=== PATIENT | male | born 1935 | race Caucasian/White ===

== ENCOUNTER 2016-09-29 13:43 | Outpatient (CLI) | END 2016-09-29 13:44 | disposition home or self-care (01) | CPT/HCPCS: 70491; Q9967 ==

== ENCOUNTER 2019-05-17 09:27 | Outpatient (CLI) | payer MEDICARE, OTHER ==
[2019-05-17] MEDS ORDERED: ALBUTEROL NEB 2.5 MG/3 ML INH SCH (09:58)
== END 2019-05-17 09:28 | disposition home or self-care (01) ==
LOC: RT 09:27
PROVIDERS: ATTEND Internal Medicine Cardiovascular Disease
DX: I25.10 Atherosclerotic heart disease of native coronary artery without angina pectoris (principal); R06.00 Dyspnea, unspecified; Z87.891 Personal history of nicotine dependence
CPT/HCPCS: 94060; 94729

== ENCOUNTER 2020-06-17 14:48 | Outpatient (CLI) | payer MEDICARE, OTHER | END 2020-06-17 14:49 | disposition home or self-care (01) | LOC: COV 14:48 | PROVIDERS: ATTEND Ophthalmology | DX: Z01.818 Encounter for other preprocedural examination (principal); H25.11 Age-related nuclear cataract, right eye; Z20.828 Contact with and (suspected) exposure to other viral communicable diseases ==

== ENCOUNTER 2020-06-20 07:29 | Day surgery (SDC) | payer MEDICARE, OTHER ==
[~2020-06-20 07:29] MED LIST: CYCLOPENTOLATE 1% OPHTH DROPS 2 ML ONE; KETOROLAC 0.45% OPHTH DROPS ONE; PHENYLEPHRINE 2.5% OPHTH 2 ML DROPS ONE; PROPARACAINE 0.5% OPHTH DROPS 15 ML ONE
[2020-06-20] MEDS ORDERED: LACTATED RINGERS 500 ML IV ONE ×2 (07:34→09:29)
--- NOTE | 2020-06-20 08:21 | ANESTHESIA ---
Pre-Anesthesia VS, & Labs - Diagnosis senile combined cataract, right - Procedure right cataract extraction with IOL Vital Signs: Temp Pulse Resp BP Pulse Ox 36.5 C 63 12 137/66 H 100 06/20/20 07:35 06/20/20 07:35 06/20/20 07:35 06/20/20 07:35 06/20/20 07:35 Height: 5 ft 11 in Weight (kg): 86.5 kg Body Mass Index: 26.6 BMI Classification: Overweight - NPO >8 hours Home Medications and Allergies Home Medications: Ambulatory Orders Aspirin [Adult Aspirin Regimen] 81 mg PO DAILY 06/20/20 Digoxin 1 tab PO DAILY 06/20/20 Fluticasone Propion/Salmeterol [Wixela 250-50 Inhub] 1 each IH BID 06/20/20 Metoprolol Succinate [Toprol Xl] 25 mg PO BID 06/20/20 Multivitamin [Multiple Vitamins] 1 tab PO DAILY 06/20/20 Simvastatin 20 mg PO DAILY 06/20/20 Aspirin [Adult Aspirin Regimen] 81 mg PO DAILY 06/20/20 Digoxin 1 tab PO DAILY 06/20/20 Fluticasone Propion/Salmeterol [Wixela 250-50 Inhub] 1 each IH BID 06/20/20 Metoprolol Succinate [Toprol Xl] 25 mg PO BID 06/20/20 Multivitamin [Multiple Vitamins] 1 tab PO DAILY 06/20/20 Simvastatin 20 mg PO DAILY 06/20/20 Allergies/Adverse Reactions: Allergies Allergy/AdvReac Type Severity Reaction Status Date / Time No Known Drug Allergies Allergy Verified 06/20/20 07:59 Anes History & Medical History - Anesthetic History Anesthesia Complications: reports: No previous complications - Medical History Cardiovascular: reports: Hypertension, High cholesterol, Coronary artery disease Pulmonary: reports: None Gastrointestinal: reports: None Urinary: reports: None Musculoskeletal: reports: None Endocrine/Autoimmune: reports: None Skin: reports: None - Surgical History Cardiothoracic: Coronary stent, Other Exam General: Alert Dental: WNL Mouth Opening: Greater than 4 Fingerbreadths Neck Mobility: Normal Mallampati classification: II Thyromental Distance: greater than 6 cm Respiratory: Lungs clear Cardiovascular: Regular rate Plan Anesthesia Type: MAC Consent for Procedure(s) Verified and Reviewed: Yes Code Status: Attempt Resuscitation ASA classification: 3-Severe systemic disease Is this case an emergency?: Yes
[2020-06-20] MEDS ORDERED: TRIAMCIN/MOXIFLOX OPHTHALMIC 0.6 ML VIAL IO ONE ×2 (09:06→09:21)
[2020-06-20] MEDS ORDERED: EPINEPHrine 1 MG/ML AMP ONE (09:07)
[2020-06-20] MEDS ORDERED: TIMOLOL 0.5% OPHTH DROPS ONE (09:07)
[2020-06-20] MEDS ORDERED: BSS/LIDOCAINE/EPINEPHRINE 1 ML SYRINGE ONE (09:07)
[2020-06-20] MEDS ORDERED: BRIMONIDINE 0.2% OPHTH DROPS 5 ML ONE (09:07)
[2020-06-20] MEDS ORDERED: VANCOMYCIN OPHTHALMI 8MG/0.8ML 8 MG/0.8 ML SYRINGE IO ONE ×2 (09:08→09:22)
[2020-06-20] MEDS ORDERED: MIDAZOLAM 2 MG/2 ML VIAL IVP ONE (09:10)
[2020-06-20] MEDS ORDERED: PROPARACAINE 0.5% OPHTH DROPS 15 ML EACHEYE ONE (09:12)
[2020-06-20] MEDS ORDERED: BRIMONIDINE 0.2% OPHTH DROPS 5 ML OPTH ONE (09:19)
[2020-06-20] MEDS ORDERED: TIMOLOL 0.5% OPHTH DROPS OPTH ONE (09:20)
[2020-06-20] MEDS ORDERED: EPINEPHrine 1 MG/ML AMP IR ONE (09:20)
[2020-06-20] MEDS ORDERED: CHONDR SULF/HYALURONATE SYRINGE IO ONE (09:20)
[2020-06-20] MEDS ORDERED: BSS/LIDOCAINE/EPINEPHRINE 1 ML SYRINGE IO ONE (09:21)
[2020-06-20 09:52] VITALS: BP 118/54
--- NOTE | 2020-06-20 12:40 | OPERATIVE REPORT ---
DATE OF SERVICE: 06/20/2020 Physician: Dinh Narvaez MD PREOPERATIVE DIAGNOSIS: Visually significant cataract, right eye. This was his first cataract surgery. POSTOPERATIVE DIAGNOSIS: Visually significant cataract, right eye. This was his first cataract surgery. PROCEDURE: Phacoemulsification with posterior chamber intraocular lens implant, right eye. SURGEON: Dinh Narvaez MD ANESTHESIA: Monitored anesthesia care. COMPLICATIONS: None. 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 Best corrected visual acuity was 20/25, with glare to 20/320 in the right eye. Indications for surgery were difficulty seeing words on a computer screen, difficulty driving in low light or at night, difficulty driving at night because of headlights from other vehicles, and difficulty with glare or bright lights in any situation. He was consented at length concerning risks and benefits of cataract surgery, after which he expressed a desire to proceed with surgery. OPERATIVE PROCEDURE: Patient was taken to OR #3 and placed under monitored anesthesia care. A surgical timeout was conducted confirming correct patient, correct procedure, and correct surgical site. He was given topical anesthesia, and prepped and draped in the usual sterile fashion. The eye was entered at the 12 and 9 o'clock positions. Intracameral Shugarcaine was injected into the anterior chamber, followed by Viscoat. A continuous-tear curvilinear capsulorrhexis was performed. The nucleus was hydrodissected and phacoemulsified. The cortex was evacuated using automated infusion and aspiration. Provisc was injected in the capsular bag, and a 21.5 diopter intraocular lens was inserted into the bag. Infusion and aspiration was used to evacuate the viscoelastic materials. The eye was inflated to physiologic pressure using balanced salt solution and found to be watertight. Approximately 0.25 mL of a mixture of triamcinolone and moxifloxacin was injected transsclerally into the vitreous in the inferotemporal quadrant. An additional 0.55 mL mixture of triamcinolone, moxifloxacin and vancomycin was injected subconjunctivally in the superior quadrant for infection and inflammation prophylaxis. Wound integrity was checked with Weck-Dee sponges. Patient was taken from the Operating Room in good condition and given postoperative instructions. TD: 06/20/2020 09:38 SRI
--- NOTE | 2020-06-20 13:26 | ANESTHESIA POST OP EVALUATION ---
Anesthesia Post Eval - Post Anesthesia Eval Vitals: Last Vital Signs Temp 36.2 C L 06/20/20 09:45 Pulse 56 L 06/20/20 09:45 Resp 20 06/20/20 09:45 BP 118/54 L 06/20/20 09:45 Pulse Ox 96 06/20/20 09:45 CV Function Including HR & BP: positive: Stable Pain Control: positive: Satisfactory Nausea & Vomiting: positive: Negative Mental Status: positive: Patient Participates Respiratory Status: Airway Patent Hydration Status: Satisfactory Anesthesia Complications: positive: None
== END 2020-06-20 07:30 | disposition home or self-care (01) ==
LOC: SDS 07:29
PROVIDERS: ATTEND Ophthalmology
DX: H25.811 Combined forms of age-related cataract, right eye (principal); Z87.891 Personal history of nicotine dependence; I10 Essential (primary) hypertension; E78.00 Pure hypercholesterolemia, unspecified; I25.10 Atherosclerotic heart disease of native coronary artery without angina pectoris; Z79.82 Long term (current) use of aspirin
CPT/HCPCS: 66984; A9270; J3490; J7120; V2632

== ENCOUNTER 2020-07-22 11:11 | Outpatient (CLI) | payer MEDICARE, OTHER | END 2020-07-22 11:12 | disposition home or self-care (01) | LOC: COV 11:11 | PROVIDERS: ATTEND Ophthalmology | DX: Z01.812 Encounter for preprocedural laboratory examination (principal); H25.812 Combined forms of age-related cataract, left eye; Z20.828 Contact with and (suspected) exposure to other viral communicable diseases ==

== ENCOUNTER 2020-07-25 08:46 | Day surgery (SDC) | payer MEDICARE, OTHER ==
[~2020-07-25 08:46] MED LIST changes: +BRIMONIDINE 0.2% OPHTH DROPS 5 ML ONE; +BSS/LIDOCAINE/EPINEPHRINE 1 ML SYRINGE ONE; -CYCLOPENTOLATE 1% OPHTH DROPS 2 ML ONE; +EPINEPHrine 1 MG/ML AMP ONE; +TIMOLOL 0.5% OPHTH DROPS ONE; +TRIAMCIN/MOXIFLOX OPHTHALMIC 0.6 ML VIAL IO ONE; +VANCOMYCIN OPHTHALMI 8MG/0.8ML 8 MG/0.8 ML SYRINGE IO ONE
[2020-07-25] MEDS ORDERED: LACTATED RINGERS 1,000 ML IV ONE (09:08)
--- NOTE | 2020-07-25 09:39 | ANESTHESIA ---
Pre-Anesthesia VS, & Labs - Diagnosis L senile combined cataract - Procedure L extraction cataract w/IOL Vital Signs: Temp Pulse Resp BP Pulse Ox 36.7 C 58 L 22 132/63 H 97 07/25/20 09:08 07/25/20 09:08 07/25/20 09:08 07/25/20 09:08 07/25/20 09:08 Height: 5 ft 11 in Weight (kg): 87 kg Body Mass Index: 26.7 BMI Classification: Overweight Home Medications and Allergies Aspirin [Adult Aspirin Regimen] 81 mg PO DAILY 06/20/20 Digoxin 1 tab PO DAILY 06/20/20 Fluticasone Propion/Salmeterol [Wixela 250-50 Inhub] 1 each IH BID 06/20/20 Metoprolol Succinate [Toprol Xl] 25 mg PO BID 06/20/20 Multivitamin [Multiple Vitamins] 1 tab PO DAILY 06/20/20 Simvastatin 20 mg PO DAILY 06/20/20 Allergies/Adverse Reactions: Allergies Allergy/AdvReac Type Severity Reaction Status Date / Time No Known Drug Allergies Allergy Verified 07/25/20 09:12 Anes History & Medical History - Anesthetic History Anesthesia Complications: reports: No previous complications Family history of Anesthesia Complications: Denies Family history of Malignant Hyperthermia: Denies - Medical History Cardiovascular: reports: Hypertension, High cholesterol, Coronary artery disease Pulmonary: reports: None Gastrointestinal: reports: None Urinary: reports: None Musculoskeletal: reports: None Endocrine/Autoimmune: reports: Other Skin: reports: None - Surgical History Eyes Ears Nose Throat (EENT): Cataracts Cardiothoracic: Fempop bypass, AAA Exam General: Alert, Oriented x3, Cooperative Dental: WNL Mouth Opening: Greater than 4 Fingerbreadths Neck Mobility: Normal Mallampati classification: II Thyromental Distance: greater than 6 cm Respiratory: Lungs clear, Normal breath sounds Cardiovascular: Regular rate Neurological: Normal speech Mental/Cognitive Status: Alert/Oriented X3, Normal for patient Cognitive Status: Within normal limits Plan Anesthesia Type: MAC Consent for Procedure(s) Verified and Reviewed: Yes Code Status: Attempt Resuscitation ASA classification: 3-Severe systemic disease Is this case an emergency?: No
[2020-07-25] MEDS ORDERED: MIDAZOLAM 2 MG/2 ML VIAL IVP ONE (10:02)
[2020-07-25] MEDS ORDERED: BRIMONIDINE 0.2% OPHTH DROPS 5 ML OPTH ONE (10:05)
[2020-07-25] MEDS ORDERED: TIMOLOL 0.5% OPHTH DROPS OPTH ONE (10:06)
[2020-07-25] MEDS ORDERED: CHONDR SULF/HYALURONATE SYRINGE IO ONE (10:06)
[2020-07-25] MEDS ORDERED: EPINEPHrine 1 MG/ML AMP IR ONE (10:06)
[2020-07-25] MEDS ORDERED: BSS/LIDOCAINE/EPINEPHRINE 1 ML SYRINGE IO ONE (10:07)
[2020-07-25] MEDS ORDERED: PROPARACAINE 0.5% OPHTH DROPS 15 ML EACHEYE ONE (10:08)
[2020-07-25] MEDS ORDERED: TRIAMCIN/MOXIFLOX OPHTHALMIC 0.6 ML VIAL IO ONE (10:08)
[2020-07-25] MEDS ORDERED: VANCOMYCIN OPHTHALMI 8MG/0.8ML 8 MG/0.8 ML SYRINGE IO ONE (10:09)
[2020-07-25] MEDS ORDERED: CARBACHOL 0.01% 1.5 ML VIAL IO ONE ×2 (10:18→10:25)
[2020-07-25] MEDS ORDERED: LACTATED RINGERS 500 ML IV ONE (10:24)
[2020-07-25 10:50] VITALS: BP 120/72
--- NOTE | 2020-07-25 13:50 | ANESTHESIA POST OP EVALUATION ---
Anesthesia Post Eval - Post Anesthesia Eval Vitals: Last Vital Signs Temp 36.6 C 07/25/20 10:24 Pulse 61 07/25/20 10:49 Resp 16 07/25/20 10:49 BP 120/72 07/25/20 10:49 Pulse Ox 98 07/25/20 10:49 CV Function Including HR & BP: positive: Stable Pain Control: positive: Satisfactory Nausea & Vomiting: positive: Negative Mental Status: positive: Baseline Respiratory Status: Airway Patent Hydration Status: Satisfactory Anesthesia Complications: positive: None
--- NOTE | 2020-07-25 14:46 | OPERATIVE REPORT ---
DATE OF SERVICE: 07/25/2020 Physician: Dinh Narvaez MD PREOPERATIVE DIAGNOSIS: Visually significant cataract, left eye. Cataract surgery was performed on the right eye on 06/20/2020. POSTOPERATIVE DIAGNOSIS: Visually significant cataract, left eye. Cataract surgery was performed on the right eye on 06/20/2020. PROCEDURE: Phacoemulsification with posterior chamber intraocular lens implant, left eye. SURGEON: Dinh Narvaez MD ANESTHESIA: Monitored anesthesia care. COMPLICATIONS: None. OPERATIVE INDICATIONS: This is an 84-year-old man with progressive vision loss in the left eye due to 3+ nuclear sclerotic and vacuolar cataract. Best corrected visual acuity was 20/30, with glare to hand motion vision in the left eye. Of note, he also has a significant epiretinal membrane of his retina. He was consented at length concerning risks and benefits of cataract surgery, after which he expressed a desire to proceed with surgery. OPERATIVE PROCEDURE: The patient was taken to OR #3 and placed under monitored anesthesia care. A surgical timeout was conducted confirming correct patient, correct procedure, and correct surgical site. He was given topical anesthesia, and prepped and draped in the usual sterile fashion. The eye was entered at the 6 and 3 o'clock positions. Intracameral Shugarcaine was injected into the anterior chamber, followed by Viscoat. Of note, after injecting the Shugarcaine, it was noted that a fairly long thin blue fiber (possibly from the Shugarcaine cannula but may have occurred during paracentesis) was seen to be in the anterior chamber. It was sitting on top of the lens and my plan was to aspirate the fiber once I had created the phaco wound and had the aspirator ready to go. However, by the time I was able to get the aspirator into the anterior chamber, this fiber had drifted to the edge of the pupil and drifted under the pupil where I did not see it again. A continuous-tear curvilinear capsulorrhexis was performed. The nucleus was hydrodissected and phacoemulsified. The cortex was evacuated using automated infusion and aspiration. Provisc was injected in the capsular bag and a 22.0 diopter intraocular lens was inserted into the bag. Infusion and aspiration was used to evacuate the viscoelastic materials. At no time was the fiber that I mentioned earlier seen in the anterior chamber or in the posterior chamber looking through the new lens. The eye was inflated to physiologic pressure using balanced salt solution and found to be watertight. Approximately 0.25 mL of a mixture of triamcinolone and moxifloxacin was injected transsclerally into the vitreous and the inferotemporal quadrant. An additional 0.55 mL of a mixture of triamcinolone, moxifloxacin, and vancomycin was injected subconjunctivally in the superior quadrant for infection and inflammation prophylaxis. At this point, it was noted that the lens, probably due to the increased volume of the vitreous, was prolapsing partially out of the bag and anterior to the iris. Because of this Miochol was ordered and about 1 mL of Miochol was injected into the anterior chamber in an attempt to bring the pupil down and push the IOL back behind the iris. However, likely because of the increased volume in the anterior chamber from the Miochol injection, the iris prolapsed into the main wound. Several attempts to reposit the iris were unsuccessful, but as the pupil came down, and using a Kuglen hook to force the iris out of the wound, the iris was finally freed from the phaco wound. Wound integrity was checked with Weck- Dee sponges and the patient was taken from the Operating Room in good condition and given postoperative instructions. I also informed him of the problems with the IOL and iris trying to prolapse. TD: 07/25/2020 10:41 SRI
== END 2020-07-25 08:47 | disposition home or self-care (01) ==
LOC: SDS 08:46
PROVIDERS: ATTEND Ophthalmology
DX: H25.812 Combined forms of age-related cataract, left eye (principal); Z98.41 Cataract extraction status, right eye; I10 Essential (primary) hypertension; I25.10 Atherosclerotic heart disease of native coronary artery without angina pectoris; Z87.891 Personal history of nicotine dependence
CPT/HCPCS: 66984; A9270; J3490; J7120; V2632

== ENCOUNTER 2023-02-09 10:56 | Outpatient (CLI) | payer MEDICARE, OTHER | END 2023-02-09 10:57 | disposition home or self-care (01) | LOC: DI 10:56 | PROVIDERS: ATTEND Internal Medicine | DX: I08.0 Rheumatic disorders of both mitral and aortic valves (principal); R06.09 Other forms of dyspnea | CPT/HCPCS: 93306 ==